=== PATIENT | male | born 1995 | race African-American/Black ===

== ENCOUNTER → 2018-05-01 | Outpatient (CLI) | payer OTHER ==
--- NOTE | 2018-05-01 15:12 | RADIOLOGY REPORT (SQ) ---
EXAM DESCRIPTION: U/S NON-OB PELVIS LTD W/O DOP COMPLETED DATE/TIME: 05/01/2018 2:42 pm REASON FOR STUDY: UNIL INGUINAL HERNIA, W/O OBST OR GANGR, NOT SPCF RECUR (K40.90) K40.40 UNIL I NGUINAL HERNIA, W GANGRENE, NOT SPECIFIED RE K40.90 UNIL INGUINAL HERNIA, W/O OBST OR GANGR, NOT SPCF COMPARISON: None. TECHNIQUE: Dynamic and static grayscale images acquired of the localized site of clinical concern an d recorded on PACS. Additional selected color Doppler and spectral images recorded. SITE OF CONCERN: Right inguinal region. LIMITATIONS: None. FINDINGS: No sonographic abnormality in the soft tissues. No evidence of solid or cystic mass. No inguinal hernia visualized at rest or with Valsalva. IMPRESSION: NO SONOGRAPHIC ABNORMALITY. NO INGUINAL HERNIA DEMONSTRATED. TECHNICAL DOCUMENTATION: JOB ID: [id number] [employer]- All Rights Reserved Reading location - IP/workstation name: [email or web address]
== END ==
LOC: RAD 13:46
PROVIDERS: ATTEND Surgery
DX: K40.90 Unilateral inguinal hernia, without obstruction or gangrene, not specified as recurrent (principal)
CPT/HCPCS: 76857

== ENCOUNTER → 2018-05-19 | Outpatient (CLI) | payer OTHER ==
--- NOTE | 2018-05-19 08:33 | RADIOLOGY REPORT (SQ) ---
EXAM DESCRIPTION: CT ABD/PELVIS NO ORAL OR IV COMPLETED DATE/TIME: 05/19/2018 8:17 am REASON FOR STUDY: RIGHT INGUINAL HERNIA (K40.90) K40.90 UNIL INGUINAL HERNIA, W/O OBST OR GANGR, NO T SPCF COMPARISON: None. TECHNIQUE: CT scan of the abdomen and pelvis performed without intravenous or oral contrast. Images reviewed with lung, soft tissue, and bone windows. Reconstructed coronal and sagittal MPR images revi ewed. All images stored on PACS. All CT scanners at this facility use dose modulation, iterative reconstruction, and/or weight based d osing when appropriate to reduce radiation dose to as low as reasonably achievable (ALARA). [facility]: Dose Right [facility]: CareDose [facility]: Dose Right [facility]: Teradose 4D [facility]: LoveThis RADIATION DOSE: CT Rad equipment meets quality standard of care and radiation dose reduction techniq ues were employed. CTDIvol: 3.7 mGy. DLP: 193 mGy-cm.mGy. LIMITATIONS: None. FINDINGS: LOWER CHEST: No significant findings. No nodules or infiltrates. NON-CONTRASTED LIVER, SPLEEN, ADRENALS: Evaluation limited by lack of IV contrast. No identified sign ificant masses. PANCREAS: No masses. No peripancreatic inflammatory changes. GALLBLADDER: No identified stones by CT criteria. No inflammatory changes to suggest cholecystitis. RIGHT KIDNEY AND URETER: No suspicious masses. Assessment limited by lack of IV contrast. No signif icant calcifications. No hydronephrosis or hydroureter. LEFT KIDNEY AND URETER: No suspicious masses. Assessment limited by lack of IV contrast. No signifi cant calcifications. No hydronephrosis or hydroureter. AORTA AND RETROPERITONEUM: No aneurysm. No retroperitoneal masses or adenopathy. BOWEL AND PERITONEAL CAVITY: No obvious masses or inflammatory changes. No free fluid. APPENDIX: Normal. PELVIS, BLADDER, AND ABDOMINAL WALL:No abnormal masses. No free fluid no evidence of inguinal hernia . BONES: No significant findings. OTHER: No other significant finding. IMPRESSION: No acute findings in the abdomen or pelvis. Specifically no evidence of inguinal hernia . COMMENT: Quality ID # [id number]: Final reports with documentation of one or more dose reduction techniques (e.g., Automated exposure control, adjustment of the mA and/or kV according to patient size, use of iterative reconstruction technique) TECHNICAL DOCUMENTATION: JOB ID: [id number] [employer]- All Rights Reserved Reading location - IP/workstation name: [email or web address]
== END ==
LOC: RAD 08:06
PROVIDERS: ATTEND Surgery
DX: K40.90 Unilateral inguinal hernia, without obstruction or gangrene, not specified as recurrent (principal)
CPT/HCPCS: 74176

== ENCOUNTER 2018-08-20 11:19 | Day surgery (SDC) | payer OTHER ==
[~2018-08-20 11:19] MED LIST: CEFAZOLIN 2 GM/D5W RTU 2 GM/50 ML RTUPB IV PRN; IBUPROFEN 800 MG in NORMAL SALINE 250 ML IV PRN
[2018-08-20] MEDS ORDERED: ONDANSETRON HCL INJ/PF 4 MG/2 ML SDV ONE (11:32)
[2018-08-20] MEDS ORDERED: DEXAMETHASONE SOD PHOS INJ 10 MG/1 ML VIAL ONE (11:32)
[2018-08-20] MEDS ORDERED: LIDOCAINE 2% INJ-PF (20 MG/ML) 10 ML AMPUL ONE (11:32)
[2018-08-20] MEDS ORDERED: MIDAZOLAM 2 MG/2 ML INJ ONE (11:32)
[2018-08-20] MEDS ORDERED: ROCURONIUM BROMIDE INJ 50 MG/5 ML VIAL IV ONE (11:33)
[2018-08-20] MEDS ORDERED: PROPOFOL INJ 200 MG/20 ML VIAL IV ONE (11:33)
[2018-08-20] MEDS ORDERED: SUCCINYLCHOLINE CHLORIDE INJ 200 MG/10 ML VIAL ONE (11:33)
[2018-08-20] MEDS ORDERED: FENTANYL CITRATE INJ/PF 100 MCG/2 ML AMPUL ONE (11:34)
[2018-08-20] MEDS ORDERED: DIPHENHYDRAMINE HCL 50 MG/ML VIAL ONE (11:34)
[2018-08-20] MEDS: BUPIVACAINE HCL 0.25 % INJ/PF (2.5 MG/1 ML) 30 ML VIAL ONE ×2 (13:05→13:09)
[2018-08-20] MEDS ORDERED: ACETAMINOPHEN 1,000 MG/100 ML RTUPB IV ONE (13:16)
[2018-08-20] MEDS ORDERED: KETOROLAC TROMETHAMINE 60 MG/2 ML SDV ONE (13:16)
--- NOTE | 2018-08-20 14:15 | Discharge Summary ---
Discharge Summary (SDC) - Discharge Final Diagnosis: Right inguinal hernia Date of Surgery: 08/20/18 Discharge Date: 08/20/18 Condition: Stable Forms: [facility] Discharge Plan Treatment or Instructions: Discharge home. Diet as tolerated. Activity: No lifting greater than 10 pounds x 6 weeks. Follow-up with me in 7-10 days. [place] 10/325 mg p.o. every 6 hours as needed for pain. Okay to shower in 48 hours. No tub baths or swimming pools times 2 weeks. Wear supportive underwear at all times, unless showering. Referrals: ADDISON MONTGOMERY MD [ACTIVE STAFF] - Discharge Diet: As Tolerated Respiratory Treatments at Home: Deep Breathing/Coughing, Incentive Spirometer Discharge Activity: No Lifting Over 10 Pounds Home Care Assistance: None Needed Report the Following to Your Physician Immediately: Shortness of Breath, Nausea, Vomiting, Increase in Pain, Fever over 101 Degrees, Unusual Bleeding, Redness, Swelling, Warmth
--- NOTE | 2018-08-20 14:20 | Operative Report ---
Nonrecallable Operative Report DATE OF SURGERY: 08/20/18 PREOPERATIVE DIAGNOSIS: Right inguinal hernia, symptomatic POSTOPERATIVE DIAGNOSIS: Symptomatic right indirect inguinal hernia OPERATION: Open right inguinal hernia repair with small plug and patch SURGEON: ADDISON MONTGOMERY ANESTHESIA: GA TISSUE REMOVED OR ALTERED: None COMPLICATIONS: None apparent ESTIMATED BLOOD LOSS: Minimal PROCEDURE: Drains/implants: Small Bard plug and patch. Procedure in detail: After informed consent was obtained, the patient was br ought into the operating room and laid in the supine position. The area of the right groin was prepped and draped in a normal sterile fashion. An incision was created in the right groin between the ASIS and pubic tubercle. Dissection was carried through the subcutaneous tissue using sharp dissection, blunt dissection, and electrocautery. The external oblique aponeurosis was incised sharply. The incision was carried through to the external inguinal ring using Metzenbaum scissors. The ilioinguinal nerve was identified and divided. The cord was then elevated away from the floor of the inguinal canal. A small indirect inguinal hernia defect was identified. There was a lipoma of the cord. This was freed and reduced back into the abdominal cavity. A small plug was used to fill the defect. After this was completed, the patch was placed into the inguinal floor. It was sutured to the inguinal floor using 0 Prolene suture in circumferential fashion. The mesh was sewn to the pubic tubercle, then inferiorly to Poupart's ligament, and superiorly to the internal oblique aponeurosis. The cord was pulled through the keyhole. The keyhole was tightened enough to admit a tip of the pinky finger. After the mesh was found to lie in good place, the external oblique aponeurosis was reapproximated using 3-0 Vicryl suture in simple running fashion. The overlying fatty tissue was closed using 3-0 Vicryl suture in simple running fashion. The overlying skin was closed using 4-0 Vicryl Rapide suture in subcuticular fashion. A dressing was placed, and the procedure was concluded. All sponge, instrument, and needle counts were correct x2. Condition: Stable.
== END 2018-08-20 15:36 | disposition home or self-care (01) ==
LOC: SC 11:19
PROVIDERS: ATTEND Surgery
DX: K40.90 Unilateral inguinal hernia, without obstruction or gangrene, not specified as recurrent (principal); Z01.818 Encounter for other preprocedural examination
CPT/HCPCS: 49505; C1781; J2250; J3490 ×2; J1200; J1885; J3010; J0330; J2405; J2704; J1100; J0690; J0131; 830; J1741; J7050